=== PATIENT | female | born 1995 | race Caucasian/White ===

== ENCOUNTER 2023-01-04 09:34 | Emergency (ER) | payer BC, SELFPAY ==
[2023-01-04 09:43] VITALS: BP 114/70; PULSE 63; RESP 18; TEMP 36.6; O2SAT 99
--- NOTE | 2023-01-04 10:54 | ED.URI ---
HPI - URI/Sore Throat General Chief Complaint: Upper Respiratory Infection Stated Complaint: Congestion/Sore Throat Time Seen by Provider: 01/04/23 10:54 Source: patient, RN notes reviewed and old records reviewed Mode of arrival: ambulatory Limitations: no limitations History of Present Illness HPI Narrative: 27-year-old female who presents to [facility] with complaints of headache,congestion, cough and wheezing, sinus pressure since last night has been taking some DayQuil. Patient reports that she was treated for strep throat last week 12/28/2022 and has been taking Augmentin.Patient requests testing for influenza concerned since has infant at home. MD elicited complaint: cough, sinus pain and other (headache) Pertinent past history: other (recent strep throat) Onset (ago): day(s) (last evening) Able to tolerate fluids by mouth: Yes Treatments prior to arrival: other (DayQuil, on antibiotic ) Related Data Home Medications Medication Instructions Recorded Confirmed amoxicillin 875 mg-potassium 1 tablet PO BID 01/04/23 01/04/23 clavulanate 125 mg tablet dexmethylphenidate 10 mg tablet 10 mg PO BID 01/04/23 01/04/23 escitalopram oxalate 20 mg tablet 20 mg PO DAILY 01/04/23 01/04/23 Allergies Allergy/AdvReac Type Severity Reaction Status Date / Time No Known Allergies Allergy Verified 01/04/23 10:22 Review of Systems Review of Systems: CONSTITUTIONAL: Denies malaise, chills, sweats, or fever. EYES: Denies visual changes, redness, or discharge. ENT: Reports rhinorrhea, congestion, sinus pain,no otalgia and sore throat. CARDIOVASCULAR: Denies chest pain, palpitations, or edema. RESPIRATORY: Reports cough.? Reports minimal dyspnea. with cough GASTROINTESTINAL: Denies abdominal pain, nausea, vomiting, diarrhea SKIN: Denies rash or itching. MUSCULOSKELETAL: Denies myalgia. NEUROLOGIC:Reports headache. All systems reviewed & are unremarkable except as noted in HPI and below PMFSH Past Medical History Medical History (Updated 01/06/23 @ 08:12 by Brenda Moser NP) Anxiety OCD (obsessive compulsive disorder) Social History Social History (Updated 01/06/23 @ 08:14 by Brenda Moser NP) Smoking status: Never smoker Alcohol intake: unknown Substance use type: does not use Gender identity (if verbalized by the patient): Female Comments At time of signature, agree with nursing past medical, surgical, social and family history. There is no relevant family history pertinent to the presenting complaint Exam Narrative: GENERAL: Well-appearing, well-nourished, and in no acute distress. HEAD: Normocephalic EYES: PERRLA, conjunctivae clear ENT: Nares clear, turbinates edematous and erythematous, clear discharge. Mucous membranes moist. TM pearly piña with dull light reflex bilaterally; no tragal tenderness. Oropharynx erythematous without lesions. Tonsils not enlarged and without exudate, no drooling, no hoarseness, no trismus, uvula midline. NECK: Supple. No lymphadenopathy CHEST: scattered wheezes noted on auscultation, breath sounds equal. positive for wheezing, no rhonchi, rales, or stridor. No respiratory distress, speaks in full sentences.SAO2 99% on room air HEART: Regular rate and rhythm. No murmur heard. SKIN: Warm, dry, no rash. NEURO: Alert and oriented x3. PSYCH: Normal mood and affect Course Course Emergency Course: Patient is aware of diagnosis, understands and agrees to treatment plan.? Anticipatory guidance given.? Patient agrees to follow-up as directed and is aware of reasons to seek care at the emergency department. Portions of this record may have been created with voice recognition software Level of Care: Express Care Visit Vital Signs Vital signs: Vital Signs Temperature 36.6 C 01/04/23 09:43 Pulse Rate 63 01/04/23 09:43 Respiratory Rate 18 01/04/23 09:43 Blood Pressure 114/70 01/04/23 09:43 Pulse Oximetry 99 01/04/23 09:43 Oxy
== END 2023-01-04 11:25 | disposition home or self-care (01) ==
PROVIDERS: Emergency Provider Registered Nurse
DX: J40 Bronchitis, not specified as acute or chronic (principal); Z20.822 Contact with and (suspected) exposure to COVID-19
CPT/HCPCS: 87426; 87804; 99203; C9803; G0463